=== PATIENT | female | born 1945 | race Caucasian/White ===

== ENCOUNTER 2016-07-23 18:32 | Observation (INO) | payer MEDICARE, OTHER ==
[~2016-07-23 18:32] MED LIST: ALLEGRA ALLERG180 M1 PO; ASPIRIN81 M1 PO; BREO ELLIPTA 11 EAC1 INH; CALCIUM CITRAT1 EA13 PO; CENTRUM SILVER1 EAC6 PO; CVS SENNA PLUS1 EACH PO; FOSAMAX70 M1 PO; ISOSORBIDE DINI20 M1 PO; ISOSORBIDE MONO60 M3 PO; LASIX40 M1 PO; LEVAQUIN500 M1 PO; LEVOTHYROXINE150 MC3 PO; LEVOTHYROXINE75 MC3 PO; LOVENOX40 MG/0.1 SC; METOPROLOL TART25 M1 PO; MIRALAX17 G2 PO; NOVOLOG100 UNITS/; PRILOSEC OTC20 M1 PO; PROZAC40 M1 PO; TRAMADOL HCL50 M2 PO; TYLENOL325 M2 PO; VITAMIN D-32000 UNI3 PO; VITAMIN D31000 UNI3 PO; VYTORIN 10-401 EACH PO; ZESTRIL2.5 M3 PO
[2016-07-23 19:16] LABS: BASO % 0.8 % (0-2); BASO ABSOLUTE COUNT 0.1 tho/cmm (0.0-0.2); EOS % 4.8 % (0-7); EOSINOPHIL ABSOLUTE COUNT 0.3 tho/cmm (0.0-0.7); HCT-HEMATOCRIT 39.3 % (34.0-49.0); HGB-HEMOGLOBIN 13.2 gm/dl (12.0-15.5); IMMATURE GRANULOCYTES ABSOLUTE 0.01 tho/cmm (0-0.03); IMMATURE GRANULOCYTES PERCENT 0.2 % (0-0.3); LYMPH ABSOLUTE COUNT 2.5 tho/cmm (0.8-4.5); MCH (MEAN CORPUSCULAR HGB) 28.6 pg (28.0-32.0); MCHC MEAN CORPUSCULAR HGB CONC 33.6 % (32.0-36.0); MCV (MEAN CELL VOLUME) 85.2 fl (82.0-96.0); MEAN PLATELET VOLUME 9.3 cmc (9.4-12.4); MONO % 10.4 % (0-12); MONOCYTE ABSOLUTE COUNT 0.7 tho/cmm (0.0-1.2); NEUTROPHIL ABSOLUTE COUNT 2.9 tho/cmm (1.6-8.0); NEUTROPHIL-AUTOMATED 2.9 tho/cmm (1.6-8.0); NEUTROPHILS % 44.8 % (40-80); PLATELET COUNT 257 tho/cmm (150-450); RED BLOOD COUNT 4.61 mil/cmm (4.00-5.20); RED CELL DISTRIBUTION WIDTH 13.2 % (12.4-16.4); WHITE BLOOD COUNT 6.5 tho/cmm (4.0-10.0)
[2016-07-23] MEDS ORDERED: CALCIUM600 M1 PO (19:21)
[2016-07-23] MEDS ORDERED: NITROSTAT0.4 MG/TAB SL ×2 (19:23→19:28)
[2016-07-23] MEDS ORDERED: CLOBETASOL EMOL15 GM TOP (19:25)
[2016-07-23] MEDS ORDERED: B COMPLEX WITH1 EAC1 PO (19:27)
[2016-07-23 19:40] LABS: BLOOD UREA NITROGEN 19 mg/dl (6-24); CALCIUM 8.8 mg/dl (8.5-10.5); CARBON DIOXIDE-VENOUS 30 mmol/L (22-32); CHLORIDE 99 mmol/l (96-110); CREATININE 0.83 mg/dl (0.50-1.10); GLUCOSE 118 mg/dL (70-110); SODIUM 136 mmol/L (135-145); eGFR VALUE FOR BLACK 83 mL/Min
[2016-07-23 19:42] LABS: ANION GAP 11 mmol/L (0-20)
[2016-07-23 19:43] LABS: POTASSIUM 4.2 mmol/L (3.7-5.1)
[2016-07-24 06:08] LABS: ANION GAP 10 mmol/L (0-20); BLOOD UREA NITROGEN 15 mg/dl (6-24); CALCIUM 8.9 mg/dl (8.5-10.5); CARBON DIOXIDE-VENOUS 31 mmol/L (22-32); CHLORIDE 102 mmol/l (96-110); CHOLESTEROL 161 mg/dl (120-200); GLUCOSE 174 mg/dL (70-110); HDL CHOLESTEROL 84 mg/dl (40-60); LDL CHOLESTEROL 57 mg/dl (0-99); POTASSIUM 4.1 mmol/L (3.7-5.1); SODIUM 139 mmol/L (135-145); TRIGLYCERIDES 104 mg/dl (<149); VLDL 21 mg/dl (0-30); eGFR VALUE FOR BLACK 87 mL/Min
== END 2016-07-24 19:10 ==
LOC: EDMED 18:32 → EMR2 21:23 → CAR1 22:50
PROVIDERS: Emergency Medicine; Physician Assistant Medical; ADMIT Internal Medicine Interventional Cardiology
DX: I25.110 Atherosclerotic heart disease of native coronary artery with unstable angina pectoris (principal); I11.0 Hypertensive heart disease with heart failure; I50.32 Chronic diastolic (congestive) heart failure; E11.9 Type 2 diabetes mellitus without complications; Z79.4 Long term (current) use of insulin; R63.4 Abnormal weight loss; Z88.0 Allergy status to penicillin; Z88.6 Allergy status to analgesic agent; Z88.5 Allergy status to narcotic agent; Z88.2 Allergy status to sulfonamides; Z79.82 Long term (current) use of aspirin
CPT/HCPCS: C1894; G0378; J1644; J1650; J2250; J3010; J7030; Q9967